=== PATIENT | female | born 2000 | race Caucasian/White ===

== ENCOUNTER 2023-09-13 18:14 | Emergency (ER) | payer OTHER, SELFPAY ==
[2023-09-13 18:22] VITALS: BP 152/105
--- NOTE | 2023-09-13 19:16 | ED.GENMED ---
History of Present Illness
General
Chief Complaint: Musculo-Skeletal Complaint
Source: patient
Time Seen by Provider: 09/13/23 19:07
History of Present Illness
History of Present Illness:
23-year-old female with past medical history of Crohn's disease presenting to the emergency department for evaluation after she injured her left ankle when walking on uneven pavement noting pain along the lateral aspect of the ankle. Patient denies
any previous history of injury or surgery. She notes that she is having a hard time putting full weight onto the active left ankle. No other injuries were sustained.
Past History
Past History
ED Past Medical History: Other (Crohn's disease)
ED Past Surgical History: Other (Pilonidal cyst drainage)
Social History
Tobacco: Smoker
Alcohol: None
Drug: None
Personal: Single
Living: with family
Employment: Employed
Family History
Family History: Other (Noncontributory)
Review of Systems
Review of Systems
All Other Systems: ROS reviewed and negative except as documented in HPI and ROS
Phy Exam
Physical Exam
Physical Exam:
GENERAL: Alert , in no apparent distress
EYE: conjunctiva clear
Head: Normocephalic atraumatic
NECK: Supple,
ENT: mmm.
LUNGS: no acute respiratory distress
NEUROLOGICAL: Alert and oriented
SKIN: Warm and dry, skin intact.
MUSCULOSKELETAL: Left foot and ankle: Mild soft tissue swelling along the lateral aspect of the ankle with tenderness over the lateral malleolus there is no tenderness at the base of the fifth metatarsal. There is no proximal tib-fib tenderness.
There is no laxity of the calcaneal tendon. Easily palpable pedal and tibial pulse. Cap refill less than 2 seconds.
PSYCH: Normal and appropriate interaction.
Scores
Heart Failure Risk
Heart Failure Risk Score: Not Applicable
Heart Score for Chest Pain Patients
STEMI patient?: Not applicable
Withdrawal Assessment of Alcohol
Withdrawal Assessment Completed?: Not applicable
Course
Orders/Labs/Results
Orders:
Orders
09/13/23 18:26
Ankle, left 3 view CR [CR Ankle - Left Min 3 Views ] Urgent
Comment:
Reason For Exam: fall
Vital Signs
Initial and Last Documented VS:
Initial Vital Signs
Temp Pulse Resp BP Pulse Ox
99.2 F 117 18 152/105 100
09/13/23 18:22 09/13/23 18:22 09/13/23 18:22 09/13/23 18:22 09/13/23 18:22
Last Documented Vital Signs
Temp Pulse Resp BP Pulse Ox
99.2 F 117 18 152/105 100
09/13/23 18:22 09/13/23 18:22 09/13/23 18:22 09/13/23 18:22 09/13/23 18:22
MDM/Problems Addressed
Differential Diagnosis Includes:
Sprain, contusion, fracture
MDM/Problems Addressed:
23-year-old female presenting to the emergency department for evaluation after injuring left ankle. X-ray was ordered from triage and ultimately shows no acute fracture. Discussed treatment options including orthopedic boot, air splint or Navi wrap
as well as ice and elevation. Patient unable to take NSAIDs recommend Tylenol for pain. Will provide with information for orthopedics for outpatient follow-up as needed. Patient is otherwise stable for discharge home.
*Radiology
Radiology exam reviewed: preliminary read by ED provider (no fracture)
*Pulse Oximetry
Patient hypoxic: no
*Critical Care Note
Total Time (30-74mins, 75-104mins- exclusive of procedures): Not Applicable
ED Attending Note
-
Portions of this chart may have been created with voice recognition software.� Occasional wrong word or��sound alike� substitutions may have occurred due to the inherent limitations of voice recognition software.
Discharge Plan
Departure
Patient Disposition: Home (Routine Discharge)
Date of Disposition: 09/13/23
Time of Disposition: 19:16
Patient with high blood pressure during this ER visit?: Yes
Discharge Problem:
Left ankle sprain
Instructions: Sprain (DC)
Prescriptions:
No Action
infliximab [Remicade] 100 MG/10 ML recon soln
100 mg IV .8WEEKS
prednisone 20 MG tablet
40 mg PO DAILY Qty: 6 0RF
sulfamethoxazole-trimethoprim [Bactrim DS] 800-160 mg tablet
1 tab PO BID Qty: 14 0RF
amoxicillin-pot clavulanate 875-125 mg tablet
1 tab PO Q12H Qty: 10 0RF
Referrals:
Jason Sandoval MD [Active] - (Ortho - call as needed)
Interventions
Interventions:
*Risk Screen - Suicide Last Done: 09/13/23 18:22
*General Assessment Last Done: 09/13/23 18:22
*Neglect/Abuse Screening Last Done: 09/13/23 18:22
ED-Musculoskeletal Assessment Last Done: 09/13/23 19:15
Discharge Date and Time
Print Language: CROATIAN
[2023-09-13 19:33] VITALS: BP 131/91
== END 2023-09-13 19:35 | disposition home or self-care (01) ==
LOC: EMR 18:14
PROVIDERS: EMERGENCY PHYSICIAN Student in an Organized Health Care Education/Training Program; FAMILY PHYSICIAN Registered Nurse
DX: S93.402A Sprain of unspecified ligament of left ankle, initial encounter (principal); X50.1XXA Overexertion from prolonged static or awkward postures, initial encounter; R03.0 Elevated blood-pressure reading, without diagnosis of hypertension; F17.200 Nicotine dependence, unspecified, uncomplicated
CPT/HCPCS: 99283; 73610